=== PATIENT | female | born 1960 | race Caucasian/White ===

== ENCOUNTER 2017-11-18 10:01 | Day surgery (SDC) | payer OTHER ==
[~2017-11-18 10:01] MED LIST: ACETAMINOPHEN 1000 MG/100 ML IVPB; BUPIVACAINE 0.25%/EPI (MDV) 50 ML VIAL INJ; CLINDAMYCIN 600 MG/D5W (PMX) 50 ML IVPB; ROCURONIUM 50 MG INJ; SOD CHLORIDE 0.9% 1,000 ML IV
[2017-11-18] MEDS ORDERED: PROPOFOL 20 ML (12:33)
[2017-11-18] MEDS ORDERED: ONDANSETRON 4 MG INJ (12:34)
[2017-11-18] MEDS ORDERED: DEXAMETHASONE 4 MG/ML 1 ML INJ (12:34)
[2017-11-18] MEDS ORDERED: MIDAZOLAM 1 MG/ML 2 ML INJ (12:34)
[2017-11-18] MEDS ORDERED: FENTAnyl 50 MCG/ML VIAL (12:34)
[2017-11-18] MEDS ORDERED: ESMOLOL 10 ML (12:51)
[2017-11-18] MEDS ORDERED: CLINDAMYCIN 600 MG/D5W (PMX) 50 ML IVPB (12:54)
[2017-11-18] MEDS ORDERED: METOCLOPRAMIDE 10 MG INJ (12:55)
[2017-11-18] MEDS ORDERED: EPHEDrine SULFATE 50 MG/5 ML SYG (13:39)
[2017-11-18] MEDS ORDERED: SUGAMMADEX SODIUM 200 MG/2 ML VIAL IV (13:39)
[2017-11-18] MEDS ORDERED: PHENYLephrine 10 MG INJ (13:39)
[2017-11-18] MEDS: POLYMYXIN/BACITRACIN 1L IRRIG (13:42)
[2017-11-18] MEDS ORDERED: morphine 10 MG INJ (14:03)
[2017-11-18] MEDS ORDERED: KETOROLAC 30 MG INJ (14:06)
[2017-11-18] MEDS ORDERED: ONDANSETRON 4 MG INJ IV (14:30)
[2017-11-18] MEDS ORDERED: morphine 10 MG INJ IV (14:30)
[2017-11-18] MEDS ORDERED: OXYCODONE/ACETAMINOPHEN (5/325) TAB PO ×2 (14:30)
[2017-11-18] MEDS ORDERED: FENTAnyl 50 MCG/ML VIAL IV (14:30)
[2017-11-18] MEDS ORDERED: KETOROLAC 30 MG INJ IV (14:30)
[2017-11-18] MEDS ORDERED: IBUPROFEN 600 MG TAB PO (14:30)
[2017-11-18] MEDS: FENTAnyl 50 MCG/ML VIAL IV (15:07)
== END 2017-11-18 16:19 | disposition home or self-care (01) ==
LOC: SDS 10:01
DX: K43.2 Incisional hernia without obstruction or gangrene (principal); I10 Essential (primary) hypertension; E03.9 Hypothyroidism, unspecified
CPT/HCPCS: 49652; 88302